=== PATIENT | male | born 1965 | race Caucasian/White ===

== ENCOUNTER 2022-07-21 08:24 | Outpatient (CLI) | payer MEDICARE, MEDICAID, SELFPAY ==
--- NOTE | 2022-07-21 08:15 | RT.EKG_ITS ---
APPROVED REPORT Exam: Resting ECG Reason for Exam: CAD Patient Location: O HR:64 bpm ECG Measurements Heart Rate 64 AXIS GA 144 P 55 QRSd 129 QRS -74 QT 442 T 256 QTc 456 Conclusion Sinus rhythm...normal P axis, V-rate 50- 99 Probable left atrial enlargement...P >50mS, <-0.10mV V1 Right bundle branch block...QRSd>120, terminal axis(90,270) Anterolateral infarct, age indeterminate...Q >35mS, flat/neg T, V3-V6,I,aVL LAFB
== END 2022-07-21 08:25 | disposition home or self-care (01) ==
LOC: DI.CARD 08:25
PROVIDERS: PCP Internal Medicine; Visit Provider Internal Medicine Cardiovascular Disease
DX: I10 Essential (primary) hypertension (principal); I25.10 Atherosclerotic heart disease of native coronary artery without angina pectoris; R94.31 Abnormal electrocardiogram [ECG] [EKG]; I45.19 Other right bundle-branch block
CPT/HCPCS: 93010

== ENCOUNTER → 2022-07-21 09:20 | Outpatient (BNVA) | payer MEDICARE, MEDICAID, SELFPAY | PROVIDERS: PCP Internal Medicine; Referring Provider Internal Medicine; Visit Provider Internal Medicine Cardiovascular Disease | DX: F17.210 Nicotine dependence, cigarettes, uncomplicated (principal); I25.10 Atherosclerotic heart disease of native coronary artery without angina pectoris; I48.92 Unspecified atrial flutter; I25.5 Ischemic cardiomyopathy; I10 Essential (primary) hypertension | CPT/HCPCS: 93005; 99203 ==